=== PATIENT | female | born 1990 | race Caucasian/White ===

== ENCOUNTER 2021-10-13 12:13 | Day surgery (SDC) | payer BC ==
[2021-10-06 13:48] LABS: CLARITY,URINE CLEAR (Clear); COLOR,URINE YELLOW (Yellow); GLUCOSE, URINE NEGATIVE (Neg); KETONES,URINE NEGATIVE (Neg); LEUKOCYTE ESTERASE ,URINE NEGATIVE (Neg); NITRITES, URINE NEGATIVE (Neg); OCCULT BLOOD,URINE NEGATIVE (Neg); PH,URINE 5.5 (4.8-8.0); PROTEIN,URINE NEGATIVE (Neg); UROBILINOGEN,URINE 0.2 E.U/dL (0.2-1.0)
[2021-10-06 13:50] LABS: UA COLLECTION TYPE CLN CATCH MIDSTREAM
[2021-10-06 13:51] LABS: BASOPHILS # (AUTO) 0.1 X10'3 (0-0.2); BASOPHILS % (AUTO) 0.8 % (0-1); EOSINOPHILS # (AUTO) 0.1 X10'3 (0-0.9); EOSINOPHILS % (AUTO) 1.9 % (0-6); LYMPHOCYTES # (AUTO) 1.6 X10'3 (1.1-4.8); LYMPHOCYTES % (AUTO) 19.9 % (21-51); MEAN CORPUSCULAR HEMOGLOBIN 30.1 PG (27.0-31.0); MEAN CORPUSCULAR HGB CONC 34.1 g/dL (33.0-36.5); MEAN CORPUSCULAR VOLUME 88.4 FL (78-98); MEAN PLATELET VOLUME 6.4 FL (7.4-10.4); MONOCYTES # (AUTO) 0.5 X10'3 (0-0.9); MONOCYTES % (AUTO) 6.8 % (2-12); NEUTROPHILS # (AUTO) 5.6 X10'3 (1.8-7.7); NEUTROPHILS % (AUTO) 70.6 % (42-75); PRE OP HEMATOCRIT 39.2 % (35.0-45.0); PRE OP HEMOGLOBIN 13.4 g/dL (12.0-16.0); PRE OP PLATELET COUNT 314 X10'3 (140-440); RED BLOOD COUNT 4.44 X10'6 (4.20-5.60); RED CELL DISTRIBUTION WIDTH 12.7 % (11.5-14.5)
[2021-10-06 14:04] LABS: ALBUMIN 4.2 G/DL (3.4-5.0); ALKALINE PHOSPHATASE 88 IU/L (46-116); BLOOD UREA NITROGEN 14 MG/DL (7-18); BUN/CREATININE RATIO 17.7 (6.6-38.0); CALCIUM 9.1 MG/DL (8.5-10.1); CHLORIDE 101 MMOL/L (99-107); CREATININE 0.79 MG/DL (0.40-0.90); PRE OP ALT 23 U/L (30-65); PRE OP ANION GAP 12 (8-16); PRE OP AST 14 U/L (10-37); PRE OP BILIRUB, TOTAL 0.5 MG/DL (0.0-1.0); PRE OP GLUCOSE 99 MG/DL (70-104); PRE OP POTASSIUM 4.1 MMOL/L (3.4-5.1); PRE OP SODIUM 140 MMOL/L (135-145); TOTAL CARBON DIOXIDE 26.6 MMOL/L (24-32); TOTAL PROTEIN 8.4 G/DL (6.4-8.2); eGFR 85 ML/MIN
[2021-10-06 14:39] LABS: HCG SERUM QL NEGATIVE
[~2021-10-13] VITALS: Ht 160 cm; Wt 78.8 kg
[2021-10-13] VITALS (13 sets, daily range): BP systolic 96–130; BP diastolic 60–77
[~2021-10-13 12:13] MED LIST: clindamycin-Cleocin 900mg/D5W 50 ML IV ONE; famotidine 20mg tablet PO ONE; gentamicin inj 315 MG in normal saline 100ml IV soln 92.125 ML IV ONE; ringers solution, lacted 1,000 ML IV SCH
[2021-10-13] MEDS ORDERED: acetaminophen 325mg tablet PO ONE (12:30)
[2021-10-13] MEDS ORDERED: BUPIVAcaine/PF 2.5 mg/ml (0.25%) 30ml vial ONE (12:42)
[2021-10-13] MEDS ORDERED: morphine 2 MG/ML inj. syringe IV PRN (12:50)
[2021-10-13] MEDS ORDERED: meperidine/PF 25mg/ml syringe IV PRN ×3 (12:50)
[2021-10-13] MEDS ORDERED: ondansetron/PF 4mg/2ml inj IV PRN (12:50)
[2021-10-13] MEDS ORDERED: morphine 4 MG/ML inj SYRINge IV PRN (12:50)
[2021-10-13] MEDS ORDERED: ringers solution, lacted 1,000 ML IV SCH (12:50)
[2021-10-13] MEDS ORDERED: proCHLORperazine 10 MG/2 ml inj IV PRN (12:50)
[2021-10-13] MEDS ORDERED: propofol inj 20 ML IV ONE (13:13)
[2021-10-13] MEDS ORDERED: fentaNYL/PF 50MCG/1 ML 2ML syringe ONE (13:13)
[2021-10-13] MEDS ORDERED: midazolam 1 mg/ML 2ml injection ONE (13:13)
[2021-10-13] MEDS ORDERED: sevoflurane 250ml liquid IH ONE (13:13)
[2021-10-13] MEDS ORDERED: rocuronium 10mg/ml inj IV ONE (13:14)
[2021-10-13] MEDS ORDERED: acetaminophen 1,000mg/100ml IV 100 ML IV ONE (13:56)
[2021-10-13] MEDS ORDERED: dexamethasone sod phosphate 4mg/ml inj. ONE (13:57)
[2021-10-13] MEDS ORDERED: ondansetron/PF 4mg/2ml inj ONE (13:57)
[2021-10-13] MEDS ORDERED: sugammadex 200mg/2ml injection IV ONE (13:59)
--- NOTE | 2021-10-13 14:20 | NUR ---
Received from OR via [facility], accompanied by Anesthesiologist DR VALENCIA and report given by Anesthesiolgist. PT IS STILL VERY SLEEPY AND RESPONDS TO PAINFUL STIMULI THEN DRIFTS BACK TO SLEEP. PT MOVES HEAD SIDE TO SIDE BUT NOT AWAKE ENOUGH TO MOVE EXTREMITIES TO COMMAND. PT PLACED ON BEDSIDE MONITOR AND VSS. HR IS 70'S TO HIGH 60'S, PT RECEIVING 10L O2 TO MASK AND TOLERATING WELL, O2 SAT > 96%. PT RR IS 14-17. WILL TITRATE O2 DOWN PT TOLERATES. PT HAS 20G PIV TO LEFT AC WITH LR INFUSING @ 100ML/HR ORDERED. PT HAS 2 SMALL INCISION SITES AND BILAT LOWER ABD THAT ARE CDI, YAMILEX PAD WITH MESH BRIEF IS CDI. PT RESTING COMFORTABLY. WILL CONTINUE TO ASSESS.
--- NOTE | 2021-10-13 15:48 | NUR ---
ALL DISCHARGE CRITERIA HAS BEEN MET. VSS, PAIN AT A TOLERABLE LEVEL, ABLE TO SAFELY AMBULATE AND TRANSFER SELF. IV TAKEN OUT WITHOUT ANY COMPLICATIONS. ALL DISCHARGE INSTRUCTIONS COVERED WITH PATIENT AND ALL QUESTIONS ANSWERED. PATIENT TAKEN OUT VIA WHEELCHAIR WITH ALL BELONGINGS TO PERSONAL VEHICLE WHERE FAMILY DROVE PATIENT HOME. Addendum: 10/13/21 at 1605 by Connor Prado RN Amended: Links added.
== END 2021-10-13 15:48 | disposition home or self-care (01) ==
LOC: PAS 12:13
PROVIDERS: ATTEND Obstetrics & Gynecology Obstetrics
DX: Z30.2 Encounter for sterilization (principal); Z30.432 Encounter for removal of intrauterine contraceptive device; K66.0 Peritoneal adhesions (postprocedural) (postinfection); Z79.899 Other long term (current) drug therapy; Z98.890 Other specified postprocedural states; Z87.891 Personal history of nicotine dependence; Z88.0 Allergy status to penicillin; Z72.89 Other problems related to lifestyle
CPT/HCPCS: 36415; 58301; 58661; 71046; 80053; 81003; 82948; 84703; 85025; 86885; 86900; 86901; 87811; 93005; J0131; J1100; J1580; J2175; J2250; J2405; J2704; J3010; J3490; J7030; J7120; Z7506; Z7512; A4618; A7000